=== PATIENT | female | born 1955 | race Caucasian/White ===

== ENCOUNTER → 2021-08-02 | Outpatient (CLI) | payer MEDICARE ==
[~2021-08-02] MED LIST: CRESTOR10 MG PO; LOPRESSOR 25 MG25 MG PO; NEURONTIN600 MG PO; NORCO 7.5-3251 EACH PO; PREVACID15 M1 PO; PROZAC20 MG PO; SYNTHROID75 MCG PO; VITAMIN D10000 UNIT PO; ZYRTEC10 MG PO
== END ==
LOC: MAMO 09:17
DX: Z12.31 Encounter for screening mammogram for malignant neoplasm of breast (principal); M79.7 Fibromyalgia; M77.11 Lateral epicondylitis, right elbow; M79.671 Pain in right foot; M81.0 Age-related osteoporosis without current pathological fracture; E03.9 Hypothyroidism, unspecified; M85.89 Other specified disorders of bone density and structure, multiple sites
CPT/HCPCS: 77063; 77067; 77080